=== PATIENT | male | born 1975 | race American Indian/Alaskan Native ===

== ENCOUNTER 2017-04-20 11:12 | Emergency (ER) | payer SELFPAY ==
[2017-04-20 11:53] LABS: Basophils % (Auto) 0.4 % (0.0-1.8); Hematocrit 43.3 % (30.3-42.9); Hemoglobin 14.4 gm/dl (10.1-14.3); Mean Corpuscular HGB Conc 33 % (30-34); Mean Corpuscular Hemoglobin 31 pg (28-32); Mean Corpuscular Volume 94 fl (79-97); Platelet Count 198 K/mm3 (140-440); Red Blood Count 4.59 M/mm3 (3.65-5.03); Red Cell Distribution Width 13.6 % (13.2-15.2); White Blood Count 6.6 K/mm3 (4.5-11.0)
[2017-04-20] MEDS ORDERED: ZOFRAN ONE (12:00)
[2017-04-20] MEDS ORDERED: ZOFRAN IV ONE ×2 (12:01→13:37)
[2017-04-20 12:13] LABS: BUN/Creatinine Ratio 6.66; Blood Urea Nitrogen 6 mg/dL (7-17); Calcium 9.6 mg/dL (8.4-10.2); Carbon Dioxide 18 mmol/L (22-30); Glucose 117 mg/dL (65-100)
[2017-04-20 12:14] LABS: Anion Gap 24 mmol/L; Chloride 100.8 mmol/L (98-107); Potassium 3.9 mmol/L (3.6-5.0); Sodium 139 mmol/L (137-145)
[2017-04-20] MEDS ORDERED: NACL 0.9% 1000 ML 1,000 ML IV ONE (13:36)
[2017-04-20] MEDS ORDERED: MORPHINE ONE (13:37)
[2017-04-20] MEDS ORDERED: MORPHINE IV ONE ×2 (13:37→15:14)
[2017-04-20] MEDS ORDERED: NACL ONE (13:49)
[2017-04-20 13:57] LABS: Creatine Kinase MB 2.1 ng/mL (0.0-4.0)
[2017-04-20 13:59] LABS: Alanine Aminotransferase 20 units/L (7-56); Albumin 4.5 g/dL (3.9-5); Albumin/Globulin Ratio 1.6 %; Alkaline Phosphatase 50 units/L (35-129); Creatine Kinase 240 units/L (55-170); Total Protein 7.4 g/dL (6.3-8.2)
[2017-04-20 14:02] LABS: Urine Drugs of Abuse Note Disclamer
[2017-04-20 14:09] LABS: Bilirubin,Direct < 0.2 mg/dL (0-0.2)
--- NOTE | 2017-04-20 14:23 | Cat Scan Report ---
CTA CHEST: History: Chest pain, abdominal pain. Technique: Helical CT following IV contrast. Pulmonary embolus protocol. Sagittal and coronal reformatted images. Rotational MIP images. Findings: Contrast bolus is satisfactory. No pulmonary embolus is identified. The thyroid gland, tracheobronchial tree, esophagus, heart, pericardium, mediastinal vessels, lung casper and bony thorax are unremarkable. Impression: No evidence for pulmonary embolus. Unremarkable CT chest with contrast.
[2017-04-20 14:24] LABS: Bilirubin,Urine NEG (Negative); Blood,Urine NEG (Negative); Ketones,Urine 20 mg/dL (Negative); Leukocyte Esterase,Urine NEG (Negative); Mucus,Urine FEW /HPF; Nitrite,Urine NEG (Negative); Urobilinogen,Urine < 2.0 mg/dL (<2.0)
[2017-04-20 15:22] LABS: INR 1.01 (0.87-1.13)
[2017-04-20 15:23] LABS: Partial Thromboplastin Time 29.9 Sec. (24.2-36.6)
--- NOTE | 2017-04-20 16:05 | Emergency Department Report ---
ED Chest Pain HPI - General Chief Complaint: Chest Pain Stated Complaint: CHEST PAIN Time Seen by Provider: 04/20/17 13:35 Source: patient, EMS Mode of arrival: Stretcher Limitations: No Limitations - History of Present Illness Initial Comments: Patient states that he went to [place] for evaluation of chest pain which started at about 2 AM the early a.m. hours of the third. He states that he did not stay long enough to find out what his laboratory test showed. He states his chest pain resolved and that he just decided to leave. He admits to recent crack cocaine abuse. He denies previous admission for chest pain. He states the chest pain is now starts in his chest and radiates to his epigastric area. It does not involve his back arms or her neck. He's had some nausea and vomiting without signs of GI bleeding. Does not complain of cough or dyspnea. MD Complaint: chest pain -: days(s) Onset: during rest Pain Location: substernal Pain Radiation: none Severity: moderate Quality: pressure Consistency: intermittent, now resolved Improves With: nothing Worsens With: nothing re: nausea, vomting. denies: diaphoresis, dyspnea Other Symptoms: denies: cough, fever, syncope Treatments Prior to Arrival: none Aspirin use within the Past 7 Days: (0) No - Related Data On Oral Contraceptives: No Home Medications Medication Instructions Recorded Confirmed Last Taken No Known Home Medications [No 04/20/17 04/20/17 Unknown Reported Home Medications] Allergies Allergy/AdvReac Type Severity Reaction Status Date / Time Penicillins Allergy Anaphylaxis Verified 04/20/17 11:24 Heart Score - HEART Score History: Moderately suspicious EKG: Non-specific Age: < 45 Risk factors: 1-2 risk factors Troponin: < normal limit HEART Score: 3 - Critical Actions Critical Actions: 0-3 pts:0.9-1.7%risk of adverse cardiac event.Candidate for discharge ED Review of Systems ROS: Stated complaint: CHEST PAIN Other details as noted in HPI Constitutional: denies: chills, fever Eyes: denies: eye pain, eye discharge, vision change ENT: denies: ear pain, throat pain Respiratory: denies: cough, shortness of breath, wheezing Cardiovascular: chest pain. denies: palpitations Endocrine: no symptoms reported Gastrointestinal: abdominal pain, nausea, vomiting. denies: diarrhea Genitourinary: denies: urgency, dysuria Musculoskeletal: denies: back pain, joint swelling, arthralgia Skin: denies: rash, lesions Neurological: denies: headache, weakness, paresthesias Psychiatric: denies: anxiety, depression Hematological/Lymphatic: denies: easy bleeding, easy bruising ED Past Medical Hx - Past Medical History Additional medical history: bronchitis - Surgical History Additional Surgical History: back surgery-herniated disc - Social History Smoking Status: Current Every Day Smoker Substance Use Type: Cocaine, Marijuana - Medications Home Medications: Home Medications Medication Instructions Recorded Confirmed Last Taken Type No Known Home Medications [No 04/20/17 04/20/17 Unknown History Reported Home Medications] ED Physical Exam - General Limitations: No Limitations General appearance: alert, in no apparent distress - Head Head exam: Present: atraumatic, normocephalic - Eye Eye exam: Present: normal appearance. Absent: scleral icterus - ENT ENT exam: Present: mucous membranes moist - Neck Neck exam: Present: normal inspection - Respiratory Respiratory exam: Present: normal lung sounds bilaterally. Absent: respiratory distress - Cardiovascular Cardiovascular Exam: Present: regular rate, normal rhythm. Absent: systolic murmur, diastolic murmur, rubs, gallop - GI/Abdominal GI/Abdominal exam: Present: soft, normal bowel sounds. Absent: distended, tenderness, guarding, rebound, rigid - Rectal Rectal exam: Present: deferred - Extremities Exam Extremities exam: Present: normal inspection, normal capillary refill. Absent: tenderness, pedal edema, joint swelling, calf tenderness - Back Exam Back exam: Present: normal inspection. Absent: CVA tenderness (R), CVA tenderness (L) - Neurological Exam Neurological exam: Present: alert, oriented X3, CN II-XII intact. Absent: motor sensory deficit - Psychiatric Psychiatric exam: Present: normal affect, normal mood - Skin Skin exam: Present: warm, dry, intact, normal color. Absent: rash - Other Other exam information: Peripheral pulses are present and strong and symmetrical. ED Course Vital Signs 04/20/17 04/20/17 04/20/17 11:10 11:20 11:30 Pulse Rate 63 58 L 62 Respiratory 15 21 Rate Blood Pressure 123/76 123/76 Blood Pressure [Left] O2 Sat by Pulse 100 100 Oximetry 04/20/17 04/20/17 04/20/17 11:40 11:50 12:00 Pulse Rate 62 60 48 L Respiratory 13 15 17 Rate Blood Pressure 155/81 155/81 155/81 Blood Pressure [Left] O2 Sat by Pulse 99 95 95 Oximetry 04/20/17 04/20/17 04/20/17 12:01 12:10 12:20 Pulse Rate 60 Respiratory 16 9 L 14 Rate Blood Pressure 134/77 134/77 Blood Pressure [Left] O2 Sat by Pulse 98 99 100 Oximetry 04/20/17 04/20/17 04/20/17 12:30 12:40 12:50 Pulse Rate 65 Respiratory 12 43 H 15 Rate Blood Pressure 134/77 155/81 155/81 Blood Pressure [Left] O2 Sat by Pulse 100 100 100 Oximetry 04/20/17 04/20/17 04/20/17 13:00 13:10 13:20 Pulse Rate 54 L Respiratory 27 H 15 14 Rate Blood Pressure 155/81 141/75 141/75 Blood Pressure [Left] O2 Sat by Pulse 100 100 100 Oximetry 04/20/17 04/20/17 04/20/17 13:30 13:40 14:20 Pulse Rate 49 L Respiratory 13 15 Rate Blood Pressure 141/75 146/92 146/92 Blood Pressure [Left] O2 Sat by Pulse 100 97 100 Oximetry 04/20/17 04/20/17 04/20/17 14:32 14:40 16:43 Pulse Rate 89 Respiratory 16 Rate Blood Pressure 146/92 146/92 Blood Pressure 138/79 [Left] O2 Sat by Pulse 100 93 99 Oximetry - Reevaluation(s) Reevaluation #1: Patient is given analgesia and antiemetics. His pain improved. He told me he knows that he needs to "fix my lifestyle". He is being admitted by Dr. Boateng to the hospitalist service for further care and evaluation. 04/20/17 17:18 ALFREDO score - Alfredo Score Age > 65: (0) No Aspirin use within the Past 7 Days: (0) No 3 or more CAD Risk Factors: (1) Yes 2 or more Angina events in past 24 hrs: (0) No Known CAD with more than 50% Stenosis: (0) No Elevated Cardiac Markers: (0) No ST Deviation Greater than 0.5mm: (0) No ALFREDO Score: 1 ED Medical Decision Making - Lab Data Result diagrams: 04/20/17 11:33 04/20/17 11:33 - Radiology Data Radiology results: report reviewed (CT imaging of the chest was negative) Critical care attestation.: If time is entered above; I have spent that time in minutes in the direct care of this critically ill patient, excluding procedure time. ED Disposition Clinical Impression: Cocaine abuse Chest pain Qualifiers: Chest pain type: unspecified Qualified Code(s): R07.9 - Chest pain, unspecified Disposition: 09 OP ADMIT IP TO THIS HOSP Is pt being admited?: Yes Does the pt Need Aspirin: Yes Condition: Stable Instructions: Chest Pain (ED) Referrals: PRIMARY CARE, [Primary Care Provider] - 3-5 Days Time of Disposition: 17:20
[2017-04-20 16:43] VITALS: BP 138/79
[2017-04-20] MEDS ORDERED: BABY ASPIRIN PO ONE (17:21)
== END 2017-04-20 20:57 | disposition admitted as inpatient to this hospital (09) ==
LOC: EDSEX 11:12 → ED 11:12
DX: R07.9 Chest pain, unspecified (principal); F14.10 Cocaine abuse, uncomplicated; F12.10 Cannabis abuse, uncomplicated; F17.200 Nicotine dependence, unspecified, uncomplicated
CPT/HCPCS: 36415; 71275; 80048; 80074; 80307; 81001; 82550; 82553; 83690; 83880; 84484; 85025; 85379; 85610; 85730; 86850; 86900; 86901; 93005; 93010; 96361; 96374; 96375; 96376; 99285; J2270; J2405; J7030; Q9967

== ENCOUNTER 2019-08-29 19:28 | Emergency (ER) | payer SELFPAY ==
--- NOTE | 2019-08-29 19:45 | Emergency Department Report ---
Blank Doc - Documentation Documentation: 43-year-old male that presents with left mandible pain after opening the door and hit him. Denies any LOC. This initial assessment/diagnostic orders/clinical plan/treatment(s) is/are subject to change based on patient's health status, clinical progression and re- assessment by fellow clinical providers in the ED. Further treatment and workup at subsequent clinical providers discretion. Patient/guardians urged not to elope from the ED as their condition may be serious if not clinically assessed and managed. Initial orders include: 1- Patient sent to [facility] for further evaluation and treatment 2- xrays
--- NOTE | 2019-08-29 21:44 | XRay Report ---
HISTORY:pain COMPARISON: None. TECHNIQUE: AP and obliques views were obtained FINDINGS: Bones: No fracture or dislocation. Joint spaces: Maintained. Soft tissues: No significant abnormality. Additional findings: None. IMPRESSION: 1. No significant abnormality. If clinical symptoms persist recommend CT Signer Name: Vinicius Colindres MD Signed: 08/29/2019 9:40 PM Workstation Name: [id number]
[2019-08-29] MEDS ORDERED: IBUPROFEN 800 MG TAB PO ONE (23:19)
--- NOTE | 2019-08-29 23:24 | Emergency Department Report ---
ED General Adult HPI - General Chief complaint: Dental/Oral Stated complaint: LEFT JAW PAIN Time Seen by Provider: 08/29/19 19:44 Source: family Mode of arrival: Ambulatory Limitations: No Limitations - History of Present Illness Initial comments: Pt is a 43-year-old male that presents with left mandible pain after opening the door and hit him. Denies any LOC, there is no laceration, abrasion or bleeding ,no swelling, no trismus, no dental abscess. Onset/Timin -: days(s) Location: face (left check) Radiation: non-radiation Severity scale (0 -10): 4 Quality: aching Consistency: constant Improves with: rest Worsens with: movement Treatments Prior to Arrival: none - Related Data Previous Rx's Medication Instructions Recorded Last Taken Type Pantoprazole [Protonix TAB] 20 mg PO QDAY #15 tablet. 04/20/17 Unknown Rx Naproxen 500 mg PO BID PRN #30 tablet 08/29/19 Unknown Rx Allergies Allergy/AdvReac Type Severity Reaction Status Date / Time Penicillins Allergy Anaphylaxis Verified 04/20/17 11:24 ED Review of Systems ROS: Stated complaint: LEFT JAW PAIN Other details as noted in HPI Constitutional: denies: chills, fever Eyes: denies: eye pain, eye discharge, vision change ENT: denies: ear pain, throat pain Respiratory: denies: cough, shortness of breath, wheezing Cardiovascular: denies: chest pain, palpitations Endocrine: no symptoms reported Gastrointestinal: denies: abdominal pain, nausea, diarrhea Genitourinary: denies: urgency, dysuria Musculoskeletal: as per HPI Skin: denies: rash, lesions Neurological: denies: headache, weakness, paresthesias, vertigo Psychiatric: denies: anxiety, depression Hematological/Lymphatic: denies: easy bleeding, easy bruising ED Past Medical Hx - Past Medical History Previous Medical History?: Yes Additional medical history: bronchitis - Surgical History Past Surgical History?: Yes Additional Surgical History: back surgery-herniated disc - Social History Smoking Status: Current Every Day Smoker Substance Use Type: None - Medications Home Medications: Home Medications Medication Instructions Recorded Confirmed Last Taken Type Pantoprazole [Protonix TAB] 20 mg PO QDAY #15 tablet. 04/20/17 Unknown Rx Naproxen 500 mg PO BID PRN #30 tablet 08/29/19 Unknown Rx ED Physical Exam - General Limitations: No Limitations General appearance: alert, in no apparent distress - Head Head exam: Present: normocephalic, normal inspection - Expanded Head Exam Expanded Head exam: Absent: laceration, abrasion, contusion, hematoma, racoon eyes, samuel's sign, general tenderness, tenderness of temporal artery - Eye Eye exam: Present: normal appearance, PERRL, EOMI Pupils: Present: normal accommodation - ENT ENT exam: Present: normal orophraynx, mucous membranes moist. Absent: TM's normal bilaterally, normal external ear exam - Expanded ENT Exam Expanded Mouth exam: Absent: trismus Teeth exam: Present: normal inspection Throat exam: Positive: normal inspection - Neck Neck exam: Present: normal inspection, full ROM. Absent: tenderness, meningismus, lymphadenopathy, thyromegaly - Expanded Neck Exam Expanded Neck exam: Absent: tenderness, midline deformity, anterior neck swelling, thyroid mass, carotid bruit, tracheal deviation - Respiratory Respiratory exam: Present: normal lung sounds bilaterally. Absent: respiratory distress, wheezes, stridor, chest wall tenderness - Cardiovascular Cardiovascular Exam: Present: regular rate, normal rhythm, normal heart sounds. Absent: systolic murmur, diastolic murmur, rubs, gallop - GI/Abdominal GI/Abdominal exam: Present: soft, normal bowel sounds. Absent: distended, tenderness, bruit, hernia - Rectal Rectal exam: Present: deferred - Extremities Exam Extremities exam: Present: normal inspection, full ROM, normal capillary refill. Absent: tenderness, pedal edema, joint swelling - Back Exam Back exam: Present: normal inspection, full ROM. Absent: tenderness - Neurological Exam Neurological exam: Present: alert, oriented X3, CN II-XII intact, normal gait, reflexes normal. Absent: motor sensory deficit - Expanded Neurological Exam Expanded Patient oriented to: Present: person, place, time Speech: Present: fluid speech Cranial nerves: EOM's Intact: Normal, Gag Reflex: Normal, Tongue Deviation: Normal, Nystagmus: Normal, Facial Sensation: Normal Motor strength exam: RUE: 5, LUE: 5, RLE: 5, LLE: 5 Best Eye Response ([place]): (4) open spontaneously Best Motor Response ([place]): (6) obeys commands Best Verbal Response ([place]): (5) oriented Manav Total: 15 - Psychiatric Psychiatric exam: Present: normal affect, normal mood - Skin Skin exam: Present: warm, dry, intact, normal color. Absent: rash ED Course Vital Signs 08/29/19 19:33 Temperature 98.7 F Pulse Rate 60 Respiratory 16 Rate Blood Pressure 119/86 O2 Sat by Pulse 97 Oximetry ED Medical Decision Making - Radiology Data Radiology results: report reviewed, image reviewed no significant abnormality Critical care attestation.: If time is entered above; I have spent that time in minutes in the direct care of this critically ill patient, excluding procedure time. ED Disposition Clinical Impression: Mandible pain Disposition: DC-01 TO HOME OR SELFCARE Is pt being admited?: No Does the pt Need Aspirin: No Condition: Stable Instructions: Musculoskeletal Pain (ED) Prescriptions: Naproxen 500 mg PO BID PRN #30 tablet PRN Reason: pain Referrals: [facility] [Outside] - 3-5 Days Forms: Work/School Release Form(ED) Time of Disposition: 23:32
[2019-08-29 23:53] VITALS: BP 113/78
== END 2019-08-29 23:52 | disposition home or self-care (01) ==
LOC: ED 19:28
DX: R68.84 Jaw pain (principal)
CPT/HCPCS: 70110